=== PATIENT | female | born 1940 | race Caucasian/White ===

== ENCOUNTER 2021-03-08 10:29 | Inpatient (IN) | payer MEDICARE ==
[~2021-03-08] VITALS: Ht 160 cm; Wt 66.7 kg
[2021-03-08] VITALS (32 sets, daily range): BP systolic 50–189; BP diastolic 26–169
--- NOTE | ~2021-03-08 | H ---
[address] [address] HISTORY AND PHYSICAL Name: TRINAYESENIA L Room: [address] IN .R.#: [id number] Admission: 03/08/21 Attend Phys: Thomas Houston MD, Discharge: 03/11/21 Date of : 38 Report #: [id number] THIS REPORT FOR: cc: Corona Omer MD, Khanh MD [facility],Medical Records Staff ~ Please refer to the History and Physical performed in the physician's office. By: 1201Medical Records Staff [facility] /EN
[~2021-03-08 10:29] MED LIST: ACETAMINOPHEN325 M1 PO; ADULT LOW DOSE81 MG PO; ALENDRONATE SOD10 MG PO; ALLOPURINOL 30300 M2 PO; ALPHAGAN P10 ML OP; ALPHAGAN P5 ML EA. EYE; ANALGESIC325 MG PO; CIPRO250 M1 PO; CLOPIDOGREL75 MG PO; COZAAR 25 MG TA25 M1 PO; COZAAR 50 MG TA50 M2 PO; CRESTOR20 MG PO; ENOXAPARIN40 MG/0.1 SUBQ; FLOMAX0.4 MG PO; FLONASE 0.05%50 MCG NASAL; FOSAMAX 70 MG T70 M1; GLUCOPHAGE500 MG PO; HUMALOG100 UNIT/1 SUBQ; IMDUR 30 MG TAB30 M1 PO; ISOSORBIDE MONO30 M1 PO; LANTUS SC; LISINOPRIL10 MG PO; METFORMIN 500500 MG PO; METFORMIN HCL500 M1 PO; MIRALAX17 GM PO; NEXIUM 24HR20 MG PO; NITROSTAT0.4 MG SUBLING; PLAVIX 75 MG TA75 M1 PO; PLAVIX 75 MG TA75 MG PO; RANITIDINE HCL300 M1 PO; REGLAN 10 MG TA10 MG PO; SINGULAIR 10 MG10 M1 PO; TOPROL XL25 MG PO; TOUJEO SOL300 UNIT/1 SUBQ; VENTOLIN HFA 1818 GM INH; ZYLOPRIM300 MG PO
[2021-03-08 12:26] LABS: HEMATOCRIT 40.7 % (37.0-47.0); HEMOGLOBIN 13.5 gm/dL (12.0-15.0); MCH 29.4 pg (26.0-34.0); MCHC 33.2 g/dL (28.0-37.0); MCV 88.5 fL (80.0-100.0); MPV 10.3 fl. (7.2-11.1); RBC 4.6 mil/uL (4.20-5.00); RDW-CV 15.6 % (10.5-14.5); WBC 9.6 thou/uL (4.0-11.0)
[2021-03-08 12:34] LABS: APTT 27.7 Seconds (25.0-31.3); INR 0.9; PROTIME 10.1 Seconds (9.20-11.50)
[2021-03-08 12:36] LABS: CALCIUM 9.8 mg/dL (8.5-10.1); CREATININE 0.9 mg/dL (0.6-1.3); POTASSIUM 3.7 mmol/L (3.5-5.1); TOTAL BILIRUBIN 0.5 mg/dL (<0.1-1.0); TOTAL PROTEIN 8.3 g/dL (6.4-8.2)
--- NOTE | 2021-03-08 16:56 | EKG ---
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1940 Requested By: Thomas Houston Order Number: [id number] Kandice MD: Thomas Houston Measurements Intervals [place] Rate: 62 P: [place]: QRS: 16 QRSD: 75 T: 168 QT: 395 QTc: 401 Interpretive Statements Sinus rhythm Abnrm T, consider ischemia, anterolateral lds Compared to ECG 07/08/2016 08:01:24 T-wave abnormality no longer present Possible ischemia still present Electronically Signed On 03-08-2021 16:56:11 CDT by Thomas Houston [email or web address] <ELECTRONICALLY SIGNED> By: Thomas Houston MD, [facility] 03/08/21 1656 1305 1305 Thomas Houston MD, [facility] /EPI
--- NOTE | 2021-03-08 16:58 | EKG ---
[place] [address] ELECTROCARDIOGRAM REPORT Name: YESENIA MENA Room: [address] M.R.#: [id number] Admission: 03/08/21 Attend Phys: Nazanin Oliveira Discharge: Date of : 38 Date of Service: 03/08/21 1559 Report #: [id number] THIS REPORT FOR: //name// [facility] Test Date: 2021-03-08 Test Time: 15:59:52 Pat Name: YESENIA MENA Department: Room: [facility] Gender: F Dobie Man: : 1940 Requested By: Thomas Houston Order Number: [id number] Reading MD: Thomas Houston Measurements Intervals [place] Rate: 76 P: 52 NH: 145 QRS: 16 QRSD: 71 T: 143 QT: 380 QTc: 428 Interpretive Statements Sinus rhythm Probable left atrial enlargement Abnormal T, consider ischemia, lateral leads Compared to ECG 03/08/2021 13:05:20 T-wave abnormality now present Possible ischemia still present Electronically Signed On 03-08-2021 16:58:17 CDT by Thomas Houston [email or web address] <ELECTRONICALLY SIGNED> By: Thomas Houston MD, [facility] 03/08/21 1658 1559 1559 Thomas Houston MD, [facility] /EPI
--- NOTE | 2021-03-08 17:23 | CARD ---
[address] [address] CARDIAC CATH REPORT Name: YESENIA MENA Room: [address] Meghann Villagomez#: [id number] Admission: 03/08/21 Attend Phys: Thomas Houston MD, Discharge: Date of : 38 Report #: [id number] THIS REPORT FOR: cc: Corona Omer MD, Khanh MD Holkins,Thomas Wild MD [facility] ~ APPROVED REPORT Study performed: 03/08/2021 12:49:57 Patient Details Patient Status: Out-Patient Room #: The patient is a 80 year-old female Event Personnel Thomas Houston Gas Distribution Supervisor, Meagan Basilio RN Director Of Corporate Real Estate, Mary Ramirez RTWhit Monitor, Saúl Gray Scrub Procedures Performed Art Access - R femoral artery , Left Heart Cath Coronaries, Bypass Grafts LHCCORCABG , KAMAR Place w/wo Plasty Single RCA , Hemostasis w/ Angioseal; ascending aortography Indication Unstable angina Risk Factors Hypercholesterolemia, Hypertension Previous Procedures/Diagnoses Previous CABGPrevious PCI Admission/Lab Medications/Medications given during procedure Heparin IV 7000 units, Heparin IV 5000 units, Plavix PO 600 mg, Aspirin PO 162 mg Procedure Narrative The patient was brought electively to the Cardiac Catheterization Laboratory and was prepped and draped in a sterile manner. The right femoral was infiltrated with 2% Lidocaine subcutaneous anesthesia. IV conscious sedation was used throughout procedure with appropriate monitoring and was performed in the presence of a registered nurse who was an independent trained [place] [id number] CARDIAC CATH REPORT Name: TRINAYESENIA Jori Room: [address] Meghann Villagomez#: [id number] Admission: 03/08/21 Attend Phys: Thomas Houston MD, Discharge: Date of : 38 Report #: [id number] performing the procedure. A 6fr Ultimum / 6fr/55cm Brite tip sheath was inserted into the right femoral artery. Coronary angiography was performed using coronary diagnostic catheters. The right coronary system was accessed and visualized with a 6FJR4 and 6F IM guide catheter. The left coronary system was accessed and visualized with a 6F JL4 catheter. The left ventricle was accessed and visualized with a 6F Pigtail catheter. Left ventricular/Aortic Valve gradient assessed via catheter pullback. Left ventriculogram was performed in [place] projection. An aortogram of the ascending aorta was performed. Pre-demployment femoral angiogram was performed . Closure device was deployed with a 6 Fr Angioseal STS. The patient tolerated the procedure well and there were no complications associated with the procedure. There was no hematoma. The saphenous vein grafts were visualized with a 6F JR4 catheter and a 6F AR1 MOD catheter. The HERNANDEZ was visualized to be patent, with Supravalvular Aortography. Intraoperative Conscious Sedation Sedation start time: 13:22 Case end Time: 15:14 Fentanyl 25 mcg Versed 1 mg Fluoro Time: 39.8 minutes Dose: DAP 349887 cGycm2 1942 mGy Contrast Type and Amount: Omnipaque 600 ml [place] Artery Percent Stenosis 1. Widely patent saphenous vein graft to 1 distal branch of the dominant right coronary artery 2. Total occlusion of the previously constructed vein graft to the circumflex 3. Ascending aortography reveals flush filling of a patent HERNANDEZ graft to the distal LAD Diagnostic Cath Left Main 100% distal occlusion LAD 100% proximal occlusion Circumflex 100% proximal occlusion Right Coronary 90% proximal stenosis with 80% mid vessel stenosis Left Ventriculography The left ventricle is normal in size [place] [id number] CARDIAC CATH REPORT Name: YESENIA MENA Room: [address]#: [id number] Admission: 03/08/21 Attend Phys: Thomas Houston MD, Discharge: Date of : 39 Report #: [id number] left ventricular ejection fraction is estimated to be 65%. Left ventricular wall motion abnormalities are not present. There is no mitral insufficiency. Hemodynamics The aortic pressure is 145/56 mmHg with a mean of 90 mmHg. The left ventricular pressure is 144/-2 mmHg with a mean of mmHg. The left ventricular end diastolic pressure is 16 mmHg. There was no gradient across the aortic valve upon pullback. PCI Technique Lesion Anticoagulation was achieved with Heparin. Patient was preloaded with Heparin IV 7000 units. Percutaneous coronary intervention was performed on the mid right coronary artery. The lesion stenosis prior to intervention was 80% with DANI 3 flow. A 6F IM 100CM Guide Catheter was used to engage the right ostium. A BMW 190cm Interventional Guidewire was used to cross the lesion. BALLOON DILATION A Balloon catheter Euphora SC 2.5x12 was inserted and inflated up to 12.00atm for 7seconds. Additional Inflation: 16.00atm for 6seconds. STENT DEPLOYMENT A drug-eluting stent Charles RX Stent 2.41C13ux was inserted and inflated up to 10.00atm for 10seconds. Additional Inflation: 12.00atm for 8seconds. Final angiography reveals 0 % stenosis with DANI 3 flow. PCI Technique Lesion 2 Percutaneous Coronary Intervention was performed on the proximal right coronary artery. The lesion stenosis prior to intervention was 90% with DANI 3 flow. Balloon Dilation A Balloon catheter Euphora SC 2.5x12 was inserted and inflated up to 17.00atm for 7seconds. Additional Inflation: 16.00atm for 9seconds. A NC Euphora 3.0 x 8 balloon catheter was inserted and inflated up to 12 huong for 11 seconds; 12 huong for 6 seconds; 12 huong for 5 seconds; 18 huong for 13 seconds;18 huong for 9 seconds; and 20 huong for 9 seconds. Stent Deployment A drug-eluting stent Charles RX Stent 3.0X8mm [place] [address] CARDIAC CATH REPORT Name: YESENIA MENA Room: [address] Meghann Villagomez#: [id number] Admission: 03/08/21 Attend Phys: Thomas Houston MD, Discharge: Date of : 38 Report #: [id number] up to 14.00atm for 13seconds. Additional Inflation: 16.00atm for 11seconds. Additional Inflation: 17.00atm for 10seconds. Final angiography reveals 10 % stenosis with DANI 3 flow. Comments The PCI was technically complex by virtue of marked aortoiliac tortuosity requiring placement of a long sheath. The PCI was complex by virtue of severe coronary calcification requiring significant lesion preparation prior to deployment of stents in the mid and ostial right coronary artery Conclusion 1. Severe multivessel coronary artery disease characterized by the following: A 100% distal left main coronary narrowing B 100% proximal LAD occlusion C 100% proximal circumflex occlusion D dominant right coronary artery with 90% proximal in-stent restenosis and 80% mid vessel stenosis with total occlusion of one prominent distal branch 2. Graft study characterized by the following: A widely patent saphenous vein graft to the distal right coronary artery B occluded vein graft to the circumflex 3 flash filling of a patent HERNANDEZ graft to the LAD noted on ascending aortography 4. Normal left ventricular systolic function, estimate ejection fraction being 65% 5. Mild elevation of left ventricular end-diastolic pressure at rest 6. Successful PCI with deployment of sequential drug-eluting stents at the sites of 90% ostial- proximal and 80% mid right coronary [address] [address] CARDIAC CATH REPORT Name: YESENIA MENA Room: [address] Meghann MOlivia#: [id number] Admission: 03/08/21 Attend Phys: Thomas Houston MD, Discharge: Date of : 38 Report #: [id number] stenosis with 10 and 0% residual narrowings and DANI-3 flow to the distal vessel Recommendations Cardiac Risk Reduction Program Aggressive Medical Therapy Medications Administered Aspirin (any) Clopidogrel Diagnostic Cath Approved by: Thomas Houston MD Date/Time: 03/08/2021 17:17:48 <ELECTRONICALLY SIGNED> By: Thomas Houston MD, [facility] 03/08/21 172 22 22Jolaura Houston MD, FACC /INF
[2021-03-09] VITALS (82 sets, daily range): BP systolic 69–147; BP diastolic 29–76
[2021-03-09 03:49] LABS: HEMATOCRIT 31.4 % (37.0-47.0); MCH 28.9 pg (26.0-34.0); MCHC 32.5 g/dL (28.0-37.0); MPV 9.2 fl. (7.2-11.1); RBC 3.53 mil/uL (4.20-5.00); RDW-CV 15.2 % (10.5-14.5); WBC 11.7 thou/uL (4.0-11.0)
[2021-03-09 04:15] LABS: ALBUMIN 3.1 g/dL (3.4-5.0); ALKALINE PHOSPHATASE 49 U/L (46-116); ANION GAP 9 mmol/L (7-16); BUN 12 mg/dL (7-18); CHLORIDE 106 mmol/L (98-107); CHOLESTEROL 82 mg/dL (<200); CO2 23 mmol/L (21-32); CREATININE 0.9 mg/dL (0.6-1.3); GLUCOSE 190 mg/dL (70-99); HDL CHOLESTEROL 52 mg/dL (>40); LDL CHOLESTEROL 22 mg/dL (<100); POTASSIUM 3.7 mmol/L (3.5-5.1); SGOT 17 U/L (15-37); SGPT 25 U/L (30-65); SODIUM 138 mmol/L (136-145); TC:HDL 1.6 Ratio (Not establshd); TOTAL BILIRUBIN 0.5 mg/dL (<0.1-1.0); TOTAL PROTEIN 6.5 g/dL (6.4-8.2); TRIGLYCERIDE 43 mg/dL (<150); TROPONIN-I LEVEL 0.41 ng/mL (<0.06); VLDL 9 mg/dL (<40)
[2021-03-09 04:16] LABS: SERUM ASSESSMENT CLEAR
[2021-03-09 06:29] LABS: HEMOGLOBIN 10.2 gm/dL (12.0-15.0)
[2021-03-10] VITALS (53 sets, daily range): BP systolic 73–125; BP diastolic 26–62
[2021-03-10 03:53] LABS: HEMATOCRIT 24.8 % (37.0-47.0)
[2021-03-10 04:06] LABS: CALCIUM 7.6 mg/dL (8.5-10.1); CREATININE 0.9 mg/dL (0.6-1.3); POTASSIUM 4.1 mmol/L (3.5-5.1)
[2021-03-10 06:00] LABS: HEMOGLOBIN 8.2 gm/dL (12.0-15.0)
--- NOTE | 2021-03-10 09:11 | EKG ---
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 : 1940 Requested By: Thomas Houston Order Number: [id number] Reading MD: Stu Taveras Measurements Intervals [place] Rate: 164 P: [place]: QRS: 9 QRSD: 77 T: 249 QT: 258 QTc: 426 Interpretive Statements Atrial fibrillation with rapid V-rate Probable LVH with secondary repol abnrm ST depression, probably rate related Compared to ECG 03/08/2021 15:59:52 ST (T wave) deviation now present Sinus rhythm no longer present Electronically Signed On 03-10-2021 9:11:23 CDT by Stu Taveras [email or web address] <ELECTRONICALLY SIGNED> By: Stu Taveras MD, FACC 03/10/2111 36 36 Stu Taveras MD, [facility] /EPI
--- NOTE | 2021-03-10 09:12 | EKG ---
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 03/10/21 0912 0416 0416 Stu Taveras MD, [facility] /EPI
[2021-03-10 13:00] LABS: HEMATOCRIT 25.5 % (37.0-47.0); HEMOGLOBIN 8.3 gm/dL (12.0-15.0); MCHC 32.5 g/dL (28.0-37.0); MCV 89.2 fL (80.0-100.0); RBC 2.86 mil/uL (4.20-5.00); RDW-CV 15.6 % (10.5-14.5); WBC 11.2 thou/uL (4.0-11.0)
[2021-03-11] VITALS (18 sets, daily range): BP systolic 71–204; BP diastolic 35–83
[2021-03-11 04:39] LABS: HEMATOCRIT 27.9 % (37.0-47.0); HEMOGLOBIN 9.2 gm/dL (12.0-15.0); MCH 29.5 pg (26.0-34.0); MCV 89.2 fL (80.0-100.0); MPV 10.2 fl. (7.2-11.1); RBC 3.13 mil/uL (4.20-5.00); RDW-CV 15.4 % (10.5-14.5); WBC 16.5 thou/uL (4.0-11.0)
[2021-03-11 05:03] LABS: CALCIUM 7.6 mg/dL (8.5-10.1); CREATININE 1.2 mg/dL (0.6-1.3); POTASSIUM 4.5 mmol/L (3.5-5.1)
--- NOTE | 2021-03-11 10:13 | EKG ---
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 : 1940 Requested By: Thomas Houston Order Number: [id number] Reading MD: Stu Taveras Measurements Intervals [place] Rate: 68 P: 62 MO: 128 QRS: 31 QRSD: 86 T: 137 QT: 407 QTc: 433 Interpretive Statements Sinus rhythm Probable left atrial enlargement Repol abnrm, severe global ischemia (LM/MVD) Compared to ECG 03/08/2021 15:59:52 Possible ischemia still present Electronically Signed On 03-11-2021 10:13:29 CDT by Stu Taveras [email or web address] <ELECTRONICALLY SIGNED> By: Stu Taveras MD, [facility] 03/11/21 1013 1740 1740 Stu Taveras MD, [facility] /EPI
--- NOTE | 2021-03-11 10:16 | EKG ---
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 : 1940 Requested By: Thomas Houston Order Number: [id number] Reading MD: Stu Taveras Measurements Intervals [place] Rate: 86 P: -17 ME: 123 QRS: 12 QRSD: 76 T: 211 QT: 360 QTc: 431 Interpretive Statements Sinus rhythm Repol abnrm suggests ischemia, anterolateral Compared to ECG 03/08/2021 17:40:20 No significant changes Electronically Signed On 03-11-2021 10:16:03 CDT by Stu Taveras [email or web address] <ELECTRONICALLY SIGNED> By: Stu Taveras MD, FAC 03/11/21 1016 0626 0626 Stu Taveras MD, [facility] /EPI
--- NOTE | 2021-03-11 10:17 | EKG ---
[place] [address] ELECTROCARDIOGRAM REPORT Name: YESENIA MENA Room: [address] ADM IN M.R.#: [id number] Admission: 03/08/21 Attend Phys: Nazanin Oliveira Discharge: Date of : 38 Date of Service: 03/09/21 1141 Report #: [id number] THIS REPORT FOR: //name// 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1940 Requested By: Thomas Houston Order Number: [id number] Reading MD: Stu Taveras Measurements Intervals [place] Rate: 99 P: 42 [place]: 133 QRS: 15 QRSD: 73 T: 236 QT: 324 QTc: 416 Interpretive Statements Sinus rhythm Probable left atrial enlargement Repol abnrm, severe global ischemia (LM/MVD) Compared to ECG 03/09/2021 06:26:23 No significant changes Electronically Signed On 03-11-2021 10:17:07 CDT by Stu Taveras [email or web address] <ELECTRONICALLY SIGNED> By: Stu Taveras MD, [facility] 03/11/21 1017 1141 1141 Stu Taveras MD, [facility] /EPI
--- NOTE | 2021-03-11 10:35 | EKG ---
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 : 1940 Requested By: Thomas Houston Order Number: [id number] Reading MD: Stu Taveras Measurements Intervals [place] Rate: 76 P: -13 NV: 90 QRS: -28 QRSD: 123 T: 190 QT: 370 QTc: 417 Interpretive Statements Sinus rhythm Short [place] interval Nonspecific intraventricular conduction delay Repol abnrm, severe global ischemia (LM/MVD) Compared to ECG 03/10/2021 04:16:03 Intraventricular conduction delay now present Possible ischemia still present Electronically Signed On 03-11-2021 10:35:31 CDT by Stu Taveras [email or web address] <ELECTRONICALLY SIGNED> By: Stu Taveras MD, [facility] 03/11/21 1035 0649 0649 Stu Taveras MD, [facility] /EPI
--- NOTE | 2021-03-19 09:32 | DEA ---
[address] [address] SUMMARY Name: YESENIA MENA Room: [address] IN .R.#: [id number] Admission: 03/08/21 Attend Phys: Thomas Houston MD, Discharge: 03/11/21 Date of : 38 Report #: [id number] THIS REPORT FOR: cc: Corona Omer MD, Khanh MD Holkins,Thomas Wild MD [facility] ~ DOC #: [id number] Thomas Houston MD [facility] DATE OF SERVICE: 03/11/2021 SUMMARY FINAL AND DISCHARGE DIAGNOSES: 1. Cardiopulmonary arrest. 2. Severe atherosclerotic coronary artery disease status post multivessel percutaneous coronary intervention and coronary artery bypass grafting. 3. Type 2 diabetes. 4. Mixed hyperlipidemia. 5. Paroxysmal atrial fibrillation. 6. Chronic obstructive pulmonary disease. 7. Peripheral vascular disease. 8. Hypertension. PROCEDURES: 03/08/2021 -- Left heart catheterization, left ventriculography, selective coronary arteriography, graft study, ascending aortography and percutaneous coronary intervention of the [place] right coronary artery with drug-eluting stents deployed in the proximal to mid portion of that vessel. SUMMARY: The patient was a delightful 80-year-old female with complex coronary artery disease status post multiple PCIs and coronary artery bypass grafting several years ago. She presented to the office on 02/21 with unstable angina and she has recurrent chest discomfort with frequent episodes requiring rest or nitrates. In that context, I recommend to proceed with cardiac catheterization, which was undertaken on 03/08/2021. That study revealed total left main occlusion. There was 90% ostial and 80% mid right coronary occlusion with this filling 1 portion of the distal right with the other portion of the distal right filled the vein graft. The vein graft to the circumflex was occluded. There was flush filling of the HERNANDEZ graft, but I was unable to cannulate by virtue of severe left subclavian disease. The patient did well in the immediate post-procedural phase after stenting of the right coronary artery, but then developed hypotension. It was felt to represent a vagal reaction initially and she responded to fluids and dopamine with return to normal pressure ____[TIME: 02:07] [place] [address] SUMMARY Name: TRINAYESENIA L Room: [address]#: [id number] Admission: 03/08/21 Attend Phys: Thomas Houston MD, Discharge: 03/11/21 Date of : 38 Report #: [id number] The patient had a modest loss of hemoglobin, the madelyn value being 8.3 and then rising to 9.4 after re-equilibration of fluid without transfusion having been given. She was gradually recovering in the ICU up in the chair and ambulating short distances with stable hemodynamics off pressors and crystalloid. On 03/09, she had 2 episodes of atrial fibrillation with rapid ventricular response requiring cardioversion with return to a sinus mechanism and amiodarone was instituted on 03/10 at 400 mg b.i.d. She had done well subsequent to that and was eating and ambulating with normal blood pressure off pressors and off crystalloid. On the morning of 03/11, she developed cardiopulmonary arrest on 2 occasions; she was resuscitated from the first, but was not able to be resuscitated after the second with electromechanical dissociation and no evidence of achievement of satisfactory distal perfusion. The patient ultimately at 12:55 p.m. on 03/11/2021. These issues were discussed in detail with the patient's family. The patient on 03/11/2021, at 12:55 p.m. Thomas Houston MD [facility]/ESTEE <ELECTRONICALLY SIGNED> By: Thomas Houston MD, [facility] 03/19/21 0932 0833 0858Thomas Houston MD, [facility] /sara
== END 2021-03-11 12:55 | DRG 246 ==
LOC: M.CL 10:29 → M.ICU 15:34 → M.TBA-CV 15:34 → M.ICU 20:05
PROVIDERS: ADMIT Internal Medicine; ATTEND Internal Medicine
DX: I25.10 Atherosclerotic heart disease of native coronary artery without angina pectoris (principal); I50.33 Acute on chronic diastolic (congestive) heart failure; J96.01 Acute respiratory failure with hypoxia; I48.20 Chronic atrial fibrillation, unspecified; T82.858A Stenosis of other vascular prosthetic devices, implants and grafts, initial encounter; T82.855A Stenosis of coronary artery stent, initial encounter; I11.0 Hypertensive heart disease with heart failure; I46.9 Cardiac arrest, cause unspecified; E78.5 Hyperlipidemia, unspecified; J44.9 Chronic obstructive pulmonary disease, unspecified; E11.51 Type 2 diabetes mellitus with diabetic peripheral angiopathy without gangrene; I49.9 Cardiac arrhythmia, unspecified; Y83.8 Other surgical procedures as the cause of abnormal reaction of the patient, or of later complication, without mention of misadventure at the time of the procedure; Z20.822 Contact with and (suspected) exposure to COVID-19; Y92.89 Other specified places as the place of occurrence of the external cause